=== PATIENT | female | born 1945 | race Caucasian/White ===

== ENCOUNTER 2019-02-06 18:05 | Emergency (ER) | payer MEDICARE, BC ==
[~2019-02-06] VITALS: Ht 187.9 cm; Wt 127.3 kg
[2019-02-06] MEDS ORDERED: LIDOCAINE/EPI 1%-1:100,000 (XYLOCAINE) 20ML INJ STA (18:14)
[2019-02-06] MEDS ORDERED: TETANUS,DIPTH,PERTUSS P/F (BOOSTRIX) 0.5 ML VIAL IM ONE (18:15)
[2019-02-06] MEDS ORDERED: LIDOCAINE/EPI 2% 1:100,00 (XYLOCAINE) 20 ML VIAL ONE ×2 (18:17→18:19)
--- NOTE | 2019-02-06 18:19 | ED Fall/Injury ---
General Chief Complaint: Laceration Stated Complaint: LACERATION FOREHEAD Source: patient Exam Limitations: no limitations History of Present Illness Date Seen by Provider: Feb 06, 2019 Time Seen by Provider: 18:10 Initial Comments 73-year-old female presents following a fall. Patient suffered a laceration to her left forehead. She reports that she was hosting a alliance party she was outside and tripped over a curb and fell and hit her head on the concrete. She did not lose consciousness. She does have some mild bleeding. She does not have any vision changes, nausea or vomiting. Patient is unsure when her last tetanus was. She denies any other injury Allergies and Home Medications Allergies Coded Allergies: No Known Drug Allergies (Unverified , 02/06/19) Patient Home Medication List Home Medication List Reviewed: Yes Review of Systems Review of Systems Constitutional: No chills, No fever Eyes: No Symptoms Reported Ears, Nose, Mouth, Throat: no symptoms reported Respiratory: No cough, No short of breath Cardiovascular: No chest pain, No palpitations Gastrointestinal: no symptoms reported Musculoskeletal: no symptoms reported Skin: see HPI Past Wdrpieo-Csfkga-Mazgzb Hx Past Med/Social Hx: Reviewed Nursing Past Med/Soc Hx Patient Social History Recent Foreign Travel: No Contact w/Someone Who Travel: No Physical Exam Vital Signs Vital Signs - First Documented 02/06/19 18:05 Temp 36.5 Pulse 90 Resp 16 B/P (MAP) 179/76 (110) Pulse Ox 97 O2 Delivery Room Air Capillary Refill : Height, Weight, BMI Height: '" Weight: lbs. oz. kg; BMI Method: General Appearance: no apparent distress HEENT: PERRL/EOMI, TMs normal Neck: full range of motion, supple Cardiovascular: normal peripheral pulses, regular rate, rhythm Respiratory: chest non-tender, lungs clear, normal breath sounds Gastrointestinal: non tender, soft Back: no CVA tenderness Extremities: normal range of motion, non-tender Skin: other (irregular laceration to her left forehead approximately 5 cm) Yanci Coma Score Best Eye Response: (4) Open Spontaneously Best Verbal Response: (5) Oriented Best Motor Response: (6) Obeys Commands Procedures/Interventions Wound Location: Other (left forehead above the left eye) Wound's Depth, Shape: superficial, irregular, contused tissue Wound Explored: clean Betadine Prep?: Yes Anesthesia: Lidocaine w/ Epi Volume Anesthetic (ccs): 5 Suture: Plain Suture Size: 4-0 Number of Sutures: 4 Sterile Dressing Applied?: Yes Progress Patient tolerated well with no immediate complications Progress/Results/Core Measures Results/Orders My Orders Orders - BEST ANNA L DO Dipht,Pertuss(Acell),Tet Adult (Boostrix (02/06/19 18:15) Lidocaine/Epi 1% 1:100,000 (Xylocaine /E (02/06/19 18:14) Ct Head Wo (02/06/19 18:14) Lidocaine/Epi 2% 1:100,000 (Xylocaine/Ep (02/06/19 18:17) Lidocaine/Epi 2% 1:100,000 (Xylocaine/Ep (02/06/19 18:30) Lidocaine/Epi 2% 1:100,000 (Xylocaine/Ep (02/06/19 18:19) Vital Signs/I&O 02/06/19 18:05 Temp 36.5 Pulse 90 Resp 16 B/P (MAP) 179/76 (110) Pulse Ox 97 O2 Delivery Room Air Progress Progress Note : Time: 19:05 Progress Note Patient was offered CT maxillofacial to evaluate for fracture. Her swelling and tenderness was over the zygomatic bone. She felt that since he probably wouldn't do anything for it anyway there was no reason to get a CT at this time. She will follow-up with her primary care provider if symptoms worsens return to the ER as needed Diagnostic Imaging Diagonstic Imaging: CT Plain Films/CT/US/NM/MRI: head Departure Impression Primary Impression: Fall from other slipping, tripping, or stumbling Additional Impressions: Laceration of forehead without complication Qualified Codes: S01.81XA - Laceration without foreign body of other part of head, initial encounter Contusion of forehead Qualified Codes: S00.83XA - Contusion of other part of head, initial encounter Disposition: 01 HOME, SELF-CARE Condition: Stable Departure-Patient Inst. Patient Instructions: Laceration Repair, Minor Head Injury (DC), Wound Care, Contusion (DC) Add. Discharge Instructions: Tylenol or ibuprofen as needed The Emergency Department focuses on treating and ruling out life-threatening diseases. Whenever possible, a diagnosis is given. However most patient's are given an impression based on the history, physical exam, and workup during their brief time in the ER. Information about probable diagnosis and other educational material has been provided. Please take the time to read and understand this information. It is very important that he follow up with a doctor as discussed during her visit today. Failure to adhere to your follow-up instructions may result in severe disability, injury or so please make sure to keep your appointments. Please keep in mind the emergency department is not designed to be your primary care or "family doctor" and not urgent issues are best evaluated by an outpatient physician All discharge instructions reviewed with patient and/or family. Voiced understanding. BEST ANNA DO Feb 06, 2019 18:19 POS
[2019-02-06] MEDS ORDERED: LIDOCAINE/EPI 2% 1:100,00 (XYLOCAINE) 20 ML VIAL INJ ONE (18:30)
--- NOTE | 2019-02-06 18:40 | Diagnostic Imaging Report ---
PROCEDURE: CT head without contrast. TECHNIQUE: Multiple contiguous axial images were obtained through the brain without the use of intravenous contrast. Auto Exposure Controls were utilized during the CT exam to meet ALARA standards for radiation dose reduction. INDICATION: Fall and hit head. COMPARISON: None available. FINDINGS: No hyperdense hemorrhage or space-occupying mass. No hydrocephalus or midline shift. Nettles-white matter differentiation is well-preserved. No skull fracture. Paranasal sinuses and mastoid air cells are clear. IMPRESSION: No acute intracranial process by CT. Dictated by: Dictated on workstation # [id number]
[2019-02-06 19:30] VITALS: BP 179/76
--- OUTSIDE RECORDS SUMMARY | 2019-03-04 16:46 | XMS REPORT | Continuity of Care Document ---
Author Organization Unknown Address Unknown Phone Unavailable Allergies Active Description Code Type Severity Reaction Onset Reported/Identified Relationship to Patient Clinical Status Yes No Known Drug Allergies [id number] Drug Allergy Unknown N/A 02/06/2019 Medications There is no data. Problems Date Dx Coded Attending Type Code Diagnosis Diagnosed By 02/11/2019 ANNA DO, BEST L Ot R40.2142 COMA SCALE, EYES OPEN, SPONTANEOUS, EMR 02/11/2019 ANNA DO, BEST L Ot R40.2252 COMA SCALE, BEST VERBAL RESPONSE, ORIENT 02/11/2019 ANNA DO, BEST L Ot R40.2362 COMA SCALE, BEST MOTOR RESPONSE, OBEYS C 02/11/2019 ANNA DO, BEST L Ot S01.81XA LACERATION W/O FOREIGN BODY OF OTH PART 02/11/2019 ANNA DO, BEST L Ot W01.198A FALL SAME LEV FROM SLIP/TRIP W STRIKE AG Procedures There is no data. Results There is no data. Encounters ACCT No. Visit Date/Time Discharge Status Pt. Type Provider Facility Loc./Unit Complaint [id number] 10/19/2018 14:00:00 10/19/2018 23:59: 59 CLS Outpatient RUBEN [facility] [id number] 02/06/2019 18:08:00 019 19:32:00 DIS Outpatient WILFRIDO DO BEST L [facility] ER FS LACERATION FOREHEAD
== END 2019-02-06 19:32 | disposition home or self-care (01) ==
LOC: ER FS 18:08
DX: S01.81XA Laceration without foreign body of other part of head, initial encounter (principal); R40.2142 Coma scale, eyes open, spontaneous, at arrival to emergency department; R40.2252 Coma scale, best verbal response, oriented, at arrival to emergency department; R40.2362 Coma scale, best motor response, obeys commands, at arrival to emergency department; W01.198A Fall on same level from slipping, tripping and stumbling with subsequent striking against other object, initial encounter
CPT/HCPCS: 70450; 90471; 90715

== ENCOUNTER 2021-12-05 13:04 | Inpatient (IN) | payer MEDICARE, BC ==
[2021-12-05] VITALS (9 sets, daily range): BP systolic 97–163; BP diastolic 33–70
[~2021-12-05] VITALS: Ht 190.5 cm; Wt 127.7 kg
[2021-12-05 13:22] LABS: BASOPHILS % (AUTO) 0 % (0-10); EOSINOPHILS # (AUTO) 0.2 10^3/uL (0.0-0.3); EOSINOPHILS % (AUTO) 1 % (0-10); HEMATOCRIT 38 % (35-52); HEMOGLOBIN 12.6 g/dL (11.5-16.0); LYMPHOCYTES # (AUTO) 1.8 10^3/uL (1.0-4.0); LYMPHOCYTES % (AUTO) 13 % (12-44); MEAN CORPUSCULAR HEMOGLOBIN 29 pg (25-34); MEAN CORPUSCULAR HGB CONC 33 g/dL (32-36); MEAN CORPUSCULAR VOLUME 87 fL (80-99); MEAN PLATELET VOLUME 9.7 fL (9.0-12.2); MONOCYTES % (AUTO) 7 % (0-12); NEUTROPHILS # (AUTO) 10.9 10^3/uL (1.8-7.8); NEUTROPHILS % (AUTO) 78 % (42-75); PLATELET COUNT 232 10^3/uL (130-400)
[2021-12-05 13:38] LABS: EOSINOPHILS % (MANUAL) 1 %; LYMPHOCYTES % (MANUAL) 15 %; MONOCYTES % (MANUAL) 4 %; NEUTROPHILS % (MANUAL) 80 %
[2021-12-05] MEDS ORDERED: morphine INJ 10 MG/ML 1ML (SYR OR VIAL) IVP STA (13:40)
[2021-12-05] MEDS ORDERED: ONDANSETRON 4 MG/2 ML (SDV) Z0FRAN IVP ONE (13:45)
[2021-12-05 13:49] LABS: CREATININE SERUM 0.73 MG/DL (0.60-1.30); POTASSIUM 4.2 MMOL/L (3.6-5.0)
[2021-12-05 13:50] LABS: ALBUMIN 4.3 GM/DL (3.2-4.5); BILIRUBIN,TOTAL 0.7 MG/DL (0.1-1.0); CALCIUM 10.3 MG/DL (8.5-10.1); TOTAL PROTEIN 7.3 GM/DL (6.4-8.2)
[2021-12-05] MEDS ORDERED: HOLD METFORMIN - RECEIVED CONTRAST 20 ML VIAL IV SCH (14:00)
[2021-12-05] MEDS ORDERED: IOHEXOL 350 MG/ML 100 ML (OMNIPAQUE 350) VIAL IV ONE (14:00)
[2021-12-05] MEDS ORDERED: CATHETER FLUSH 10 ML SYR IV PRN (14:00)
[2021-12-05] MEDS ORDERED: NS 100 ML (IVPB) BAG IV ONE (14:00)
[2021-12-05] MEDS ORDERED: PIPERACILLIN SODIUM/TAZOBACTAM 4.5 GM in NS (IVPB) 100 ML IV ONE (14:30)
--- NOTE | 2021-12-05 14:31 | Diagnostic Imaging Report ---
PROCEDURE: CT abdomen and pelvis with contrast. TECHNIQUE: Multiple contiguous axial images were obtained through the abdomen and pelvis after administration of intravenous contrast. Auto Exposure Controls were utilized during the CT exam to meet ALARA standards for radiation dose reduction. All CT scans use one or more of the following dose optimizing techniques: automated exposure control, MA and/or KvP adjustment based on patient size and exam type or iterative reconstruction. INDICATION: Left lower quadrant pain. Constipation. COMPARISON: No comparison available FINDINGS: The lung bases demonstrate a fat-containing right diaphragmatic hernia. There is no pneumonia or edema. There is no effusion or pericardial collection. The liver demonstrates no evidence of an acute process. There is some incidental focal fatty infiltration along the falciform ligament. Portal and hepatic veins are patent. The gallbladder is nondistended. There is no biliary dilatation or radiodense stone. The pancreas is unremarkable. The spleen is normal in size. There is no adrenal mass. The kidneys demonstrate multiple parapelvic cysts on the left but no findings of stone or hydronephrosis. There is a small hiatal hernia. The stomach is nondistended. There is no abnormal small or large bowel dilation. There is marked inflammatory fat stranding present within the right lower quadrant with multiple stones that appear to be within a dilated appendix. The appendix measures up to 1.4 cm with marked adjacent inflammatory fat stranding compatible with an appendicitis. There is also some adjacent free fluid and this may reflect a ruptured appendicitis. The colon is decompressed. There is diverticulosis but no evidence of diverticulitis. There is no definable abscess. There is no free air. The bladder, uterus and adnexa unremarkable. The inflammatory changes on the right are in close proximity to the right ovary. There are no pathologically enlarged lymph nodes. The aorta is normal in caliber. There is no acute or suspicious osseous abnormality. There are multilevel endplate changes and vacuum discs throughout the spine. IMPRESSION: 1. Findings compatible with an acute appendicitis which is likely a ruptured appendicitis given the degree of adjacent fat stranding and adjacent fluid. There are large appendicoliths demonstrated within the dilated appendix that measures up to 1.4 cm in diameter. 2. There are no findings of abscess or free fluid within the pelvis. 3. There is no bowel obstruction. Note is made of uncomplicated diverticulosis. 4. Fat-containing right diaphragmatic hernia and small hiatal hernia. 5. Advanced degenerative features throughout the spine. Dictated by: Dictated on workstation # [id number]
--- NOTE | 2021-12-05 14:51 | ED Abdominal Pain ---
General Chief Complaint: Abdominal/GI Problems Stated Complaint: ABD PAIN Nursing Triage Note: Patient reports she began having right abdominal pain last night. Patient denies any nasuea, vomiting, or fever. She reports her last BM was . She states she has a history of diverticulosis. Source of Information: Patient Exam Limitations: No Limitations History of Present Illness Date Seen by Provider: Dec 05, 2021 Time Seen by Provider: 13:00 Initial Comments Patient is a 76-year-old female who presents with right lower quadrant pain for the past 18 hours. Pain is moderate to severe worse with palpation and movement. No fever chills or sweats. Patient has not had a bowel movement in 3 days. History of diverticulosis. No other acute symptoms or complaints. Timing/Duration: 12-24 Hours Severity/Quality: Moderate Location: RLQ Radiation: Other Activities at Onset: Other Modifying Factors: Improves With Other Allergies and Home Medications Allergies Coded Allergies: No Known Drug Allergies (Unverified , 02/06/19) Patient Home Medication List Home Medication List Reviewed: Yes Review of Systems Review of Systems Constitutional: see HPI EENTM: See HPI Respiratory: See HPI Gastrointestinal: See HPI Genitourinary: See HPI Musculoskeletal: see HPI Skin: see HPI Psychiatric/Neurological: See HPI Endocrine: See HPI Hematologic/Lymphatic: See HPI All Other Systems Reviewed Negative Unless Noted: No Past Zvcpeeu-Rqeoqx-Osmpad Hx Patient Social History Tobacco Use?: No Substance use?: No Alcohol Use?: Yes Alcohol Frequency: Daily Pt feels they are or have been: No Immunizations Up To Date Tetanus Booster (TDap): Unknown Past Medical History Surgery/Hospitalization HX: diverticulosis, HTN, high cholesterol, gout, hypothyroidism Physical Exam Vital Signs Vital Signs - First Documented 12/05/21 13:18 Temp 36.3 Pulse 86 Resp 16 B/P (MAP) 172/81 (111) Pulse Ox 98 O2 Delivery Room Air Capillary Refill : Less Than 3 Seconds Height/Weight/BMI Height: '" Weight: lbs. oz. kg; 34.00 BMI Method: General Appearance: WD/WN, mild distress (seconday to pain) Respiratory: lungs clear Cardiovascular: normal peripheral pulses Gastrointestinal: soft, tenderness (RLQ pain/ttp) Extremities: normal range of motion, non-tender Back: normal inspection, no CVA tenderness Focused Exam Sepsis Stage: Ruled Out Procedures/Interventions Suture Size: 4-0 Progress/Results/Core Measures Results/Orders Lab Results Laboratory Tests Test 12/05/21 13:20 Range/Units White Blood Count 14.0 H 4.3-11.0 10^3/uL Red Blood Count 4.40 3.80-5.11 10^6/uL Hemoglobin 12.6 11.5-16.0 g/dL Hematocrit 38 35-52 % Mean Corpuscular Volume 87 80-99 fL Mean Corpuscular Hemoglobin 29 25-34 pg Mean Corpuscular Hemoglobin Concent 33 32-36 g/dL Red Cell Distribution Width 15.6 H 10.0-14.5 % Platelet Count 232 130-400 10^3/uL Mean Platelet Volume 9.7 9.0-12.2 fL Immature Granulocyte % (Auto) 0 % Neutrophils (%) (Auto) 78 H 42-75 % Lymphocytes (%) (Auto) 13 12-44 % Monocytes (%) (Auto) 7 0-12 % Eosinophils (%) (Auto) 1 0-10 % Basophils (%) (Auto) 0 0-10 % Neutrophils # (Auto) 10.9 H 1.8-7.8 10^3/uL Lymphocytes # (Auto) 1.8 1.0-4.0 10^3/uL Monocytes # (Auto) 1.0 0.0-1.0 10^3/uL Eosinophils # (Auto) 0.2 0.0-0.3 10^3/uL Basophils # (Auto) 0.0 0.0-0.1 10^3/uL Immature Granulocyte # (Auto) 0.1 0.0-0.1 10^3/uL Neutrophils % (Manual) 80 % Lymphocytes % (Manual) 15 % Monocytes % (Manual) 4 % Eosinophils % (Manual) 1 % Sodium Level 140 135-145 MMOL/L Potassium Level 4.2 3.6-5.0 MMOL/L Chloride Level 106 98-107 MMOL/L Carbon Dioxide Level 20 L 21-32 MMOL/L Anion Gap 14 5-14 MMOL/L Blood Urea Nitrogen 26 H 7-18 MG/DL Creatinine 0.73 0.60-1.30 MG/DL Estimat Glomerular Filtration Rate 86 BUN/Creatinine Ratio 36 Glucose Level 123 H 70-105 MG/DL Calcium Level 10.3 H 8.5-10.1 MG/DL Corrected Calcium 10.1 8.5-10.1 MG/DL Total Bilirubin 0.7 0.1-1.0 MG/DL Aspartate Amino Transf (AST/SGOT) 36 H 5-34 U/L Alanine Aminotransferase (ALT/SGPT) 78 H 0-55 U/L Alkaline Phosphatase 95 40-136 U/L Total Protein 7.3 6.4-8.2 GM/DL Albumin 4.3 3.2-4.5 GM/DL My Orders Orders - GREGORIA BLOUNT DO Cbc With Automated Diff (12/05/21 13:11) Comprehensive Metabolic Panel (12/05/21 13:11) Ekg Tracing (12/05/21 13:11) Urinalysis (12/05/21 13:14) Ct Abdomen/Pelvis W (12/05/21 13:14) Manual Differential (12/05/21 13:20) Morphine Injection (Morphine Injection (12/05/21 13:40) Ondansetron Injection (Zofran Injectio (12/05/21 13:45) Piperacillin Sodium/Tazobactam (Zosyn Vi (12/05/21 14:30) Medications Given in ED Current Medications Medications Dose Ordered Sig/Moustapha Route Start Time Stop Time Status Last Admin Dose Admin Iohexol 100 ml ONCE ONCE IV 12/05/21 14:00 12/05/21 14:03 DC 12/05/21 14:10 100 ML Ondansetron HCl 4 mg ONCE ONCE IVP 12/05/21 13:45 12/05/21 13:46 DC 12/05/21 13:57 4 MG Sodium Chloride 10 ml NEEDED PRN IV 12/05/21 14:00 12/05/21 14:10 10 ML Sodium Chloride 100 ml ONCE ONCE IV 12/05/21 14:00 12/05/21 14:03 DC 12/05/21 14:10 100 ML Vital Signs/I&O 12/05/21 13:18 Temp 36.3 Pulse 86 Resp 16 B/P (MAP) 172/81 (111) Pulse Ox 98 O2 Delivery Room Air Blood Pressure Mean: 111 Departure Communication (Admissions) CT abd/pelvis: perforareted appy First dose of abx given. Dr. Serna accepts directly to general sx service. Impression Primary Impression: Acute appendicitis Disposition: ADMITTED INPATIENT Condition: Stable Admissions Decision to Admit Reason: Admit from ER (Trauma) Decision to Admit/Date: Dec 05, 2021 Time/Decision to Admit Time: 14:00 Transfer Method of Transfer: Private Vehicle Departure-Patient Inst. Referrals: POLO PEPPER MD (PCP) Primary Care Physician GREGORIA BLOUNT DO Dec 05, 2021 14:51
[2021-12-05] MEDS ORDERED: ONDANSETRON 4 MG/2 ML (SDV) Z0FRAN IV PRN (16:15)
[2021-12-05] MEDS: D5 NS 1000 ML IV SOLUTION 1,000 ML IV SCH (16:45)
[2021-12-05] MEDS: morphine INJ 4 MG/ML 1 ML (VIAL/SYRINGE) IV PRN ×2 (16:45→22:54)
[2021-12-05] MEDS ORDERED: FLU QUAD HIGH DOSE 240 MCG/0.7 ML 2022-23 (FLUZONE) IM ONE (17:00)
[2021-12-05] MEDS ORDERED: NS (IVPB) 100 ML ONE (17:11)
[2021-12-05] MEDS ORDERED: PIPERACILLIN/TAZO 4.5 GM VIAL (ZOSYN) IV ONE (17:11)
[2021-12-05] MEDS ORDERED: LEVO150T6 PO (18:09)
[2021-12-05] MEDS ORDERED: CELE-63 PO (18:09)
[2021-12-05] MEDS ORDERED: ATOR40TA70 PO (18:09)
[2021-12-05] MEDS ORDERED: ALLO100T PO (18:09)
[2021-12-05] MEDS ORDERED: LIDOCAINE/EPI 2% 1:200,00 (XYLOCAINE) 10 ML VIAL ONE (19:08)
[2021-12-05] MEDS ORDERED: ONDANSETRON 4 MG/2 ML (SDV) Z0FRAN IVP PRN (19:15)
[2021-12-05] MEDS ORDERED: fentaNYL INJ 100 MCG/2 ML AMP IVP ONE (19:15)
[2021-12-05] MEDS ORDERED: MEPERIDINE (DEMEROL) INJ 50 MG/ML IVP ONE (19:15)
[2021-12-05] MEDS ORDERED: morphine INJ 10 MG/ML 1ML (SYR OR VIAL) IVP ONE (19:15)
[2021-12-05] MEDS ORDERED: proPOfol 200 MG/20 ML (DIPRIVAN) VIAL IV ONE ×2 (19:18→20:40)
[2021-12-05] MEDS ORDERED: ROCURONIUM 10 MG/ML 5 ML SYRINGE IV ONE (19:18)
[2021-12-05] MEDS ORDERED: LIDOCAINE PF 2% 5 ML (XYLOCAINE) VIAL ONE (19:18)
[2021-12-05] MEDS ORDERED: SEVOFLURANE (ULTANE) 15 ML INHAL SOLN ONE ×2 (19:18→20:19)
[2021-12-05] MEDS ORDERED: MIDAZOLAM 2 MG/2 ML (VERSED) VIAL ONE (19:19)
[2021-12-05] MEDS: LACTATED RINGERS 1,000 ML IV PRN ×2 (19:42→20:25)
--- NOTE | 2021-12-05 19:44 | Consultation - Surgery ---
History of Present Illness History of Present Illness Patient Consulted On(angela/time) 12/05/21 19:39 Time Seen by Provider: 19:23 History of Present Illness Surgery asked to consult regarding RLQ pain and appendicitis. HPI per ED: Patient reports she began having right abdominal pain last night. Patient denies any nasuea, vomiting, or fever. She reports her last BM was . She states she has a history of diverticulosis. Patient is a 76-year-old female who presents with right lower quadrant pain for the past 18 hours. Pain is moderate to severe worse with palpation and movement. No fever chills or sweats. Patient has not had a bowel movement in 3 days. History of diverticulosis. No other acute symptoms or complaints. When I spoke to pt this evening she was still having pain. She stated she last had coffee this am at around 8 but it didn't taste good and hasn't eaten anything since. She thought this pain was from her diverticula. Allergies and Home Medications Allergies Coded Allergies: No Known Drug Allergies (Unverified , 02/06/19) Patient Home Medication List Home Medication List Reviewed: Yes Allopurinol (Allopurinol) 100 Mg Tablet, 100 MG PO DAILY, (Reported) Entered as Reported by: JASVIR SEE on 12/05/211808 Last Action: New Order Atorvastatin Calcium (Atorvastatin Calcium) 40 Mg Tablet, 40 MG PO DAILY, (Reported) Entered as Reported by: JASVIR SEE on 12/05/211808 Last Action: New Order Celecoxib (Celecoxib) 200 Mg Capsule, 200 MG PO BID, (Reported) Entered as Reported by: JASVIR SEE on 12/05/211808 Last Action: New Order Levothyroxine Sodium (Levothyroxine Sodium) 150 Mcg Tablet, 150 MCG PO DAILY, (Reported) Entered as Reported by: JASVIR SEE on 12/05/211808 Last Action: New Order Past Fkteeme-Hxarxq-Frknkr Hx Patient Social History Smoking Status: Former Smoker (smoked 1/2ppd for about 10 yrs) Cigarettes Per Day: 10 Alcohol Use?: Yes Have you traveled recently?: No Immunizations Up To Date Tetanus Booster (TDap): Unknown Date of Influenza Vaccine: Feb 03, 2019 Surgeries History of Surgeries: Yes (colonoscopies) Respiratory History of Respiratory Disorde: No Cardiovascular History of Cardiac Disorders: Yes Cardiac Disorders: High Cholesterol Neurological History of Neurological Disord: No Genitourinary History of Genitourinary Disor: No Gastrointestinal History of Gastrointestinal Di: Yes Gastrointestinal Disorders: Diverticulosis Musculoskeletal History of Musculoskeletal Dis: Yes Musculoskeletal Disorders: Arthritis, Gout Endocrine History of Endocrine Disorders: Yes Endocrine Disorders: Hypothyroidsim HEENT History of HEENT Disorders: No Loss of Vision: Denies Hearing Impairment: Denies Cancer History of Cancer: No Psychosocial History of Psychiatric Problem: No Family Medical History Significant Family History: Cancer (Father - lung) Review of Systems-General Constitutional: malaise, weakness EENTM: No blurred vision, No mouth swelling, No epistaxis Respiratory: No cough, No dyspnea on exertion Cardiovascular: No chest pain, No Hx of Intervention, No palpitations Gastrointestinal: No jaundice; loss of appetite, nausea; No vomiting Genitourinary: No dysuria, No frequency, No hematuria Musculoskeletal: gout, joint pain, joint swelling, muscle stiffness Skin: No change in color, No change in hair/nails Psychiatric/Neurological: Denies Anxiety, Denies Depressed, Denies Seizure, Denies Tremors Physical Exam-General Problems Physical Exam Vital Signs Vital Signs - First Documented 12/05/21 13:18 Temp 36.3 Pulse 86 Resp 16 B/P (MAP) 172/81 (111) Pulse Ox 98 O2 Delivery Room Air Capillary Refill : Less Than 3 Seconds General Appearance: mild distress, obese Eyes: Bilateral Eye PERRL, Bilateral Eye EOMI HEENT: pharynx normal; No scleral icterus (R), No scleral icterus (L) Neck: non-tender, supple Respiratory: lungs clear, normal breath sounds, no respiratory distress, no accessory muscle use Cardiovascular: no murmur, tachycardia Gastrointestinal: soft, no organomegaly, tenderness (around umbilicus and radiating to RLQ), hernia (small umbilical) Back: no CVA tenderness, no vertebral tenderness Extremities: no pedal edema, no calf tenderness, normal capillary refill 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, alert, oriented x 3 Skin: normal color, warm/dry Lymphatic: no adenopathy (neck, axilla or groin) Data Review Labs Laboratory Tests 12/05/21 13:20: White Blood Count 14.0H, Red Blood Count 4.40, Hemoglobin 12.6, Hematocrit 38, Mean Corpuscular Volume 87, Mean Corpuscular Hemoglobin 29, Mean Corpuscular Hemoglobin Concent 33, Red Cell Distribution Width 15.6H, Platelet Count 232, Mean Platelet Volume 9.7, Immature Granulocyte % (Auto) 0, Neutrophils (%) (Auto) 78H, Lymphocytes (%) (Auto) 13, Monocytes (%) (Auto) 7, Eosinophils (%) (Auto) 1, Basophils (%) (Auto) 0, Neutrophils # (Auto) 10.9H, Lymphocytes # (Auto) 1.8, Monocytes # (Auto) 1.0, Eosinophils # (Auto) 0.2, Basophils # (Auto) 0.0, Immature Granulocyte # (Auto) 0.1, Neutrophils % (Manual) 80, Lymphocytes % (Manual) 15, Monocytes % (Manual) 4, Eosinophils % (Manual) 1, Sodium Level 140, Potassium Level 4.2, Chloride Level 106, Carbon Dioxide Level 20L, Anion Gap 14, Blood Urea Nitrogen 26H, Creatinine 0.73, Estimat Glomerular Filtration Rate 86, BUN/Creatinine Ratio 36, Glucose Level 123H, Calcium Level 10.3H, Corrected Calcium 10.1, Total Bilirubin 0.7, Aspartate Amino Transf (AST/SGOT) 36H, Alanine Aminotransferase (ALT/SGPT) 78H, Alkaline Phosphatase 95, Total Protein 7.3, Albumin 4.3 Radiology Date of Exam:12/05/21 CT ABDOMEN/PELVIS W PROCEDURE: CT abdomen and pelvis with contrast. TECHNIQUE: Multiple contiguous axial images were obtained through the abdomen and pelvis after administration of intravenous contrast. Auto Exposure Controls were utilized during the CT exam to meet ALARA standards for radiation dose reduction. All CT scans use one or more of the following dose optimizing techniques: automated exposure control, MA and/or KvP adjustment based on patient size and exam type or iterative reconstruction. INDICATION: Left lower quadrant pain. Constipation. COMPARISON: No comparison available FINDINGS: The lung bases demonstrate a fat-containing right diaphragmatic hernia. There is no pneumonia or edema. There is no effusion or pericardial collection. The liver demonstrates no evidence of an acute process. There is some incidental focal fatty infiltration along the falciform ligament. Portal and hepatic veins are patent. The gallbladder is nondistended. There is no biliary dilatation or radiodense stone. The pancreas is unremarkable. The spleen is normal in size. There is no adrenal mass. The kidneys demonstrate multiple parapelvic cysts on the left but no findings of stone or hydronephrosis. There is a small hiatal hernia. The stomach is nondistended. There is no abnormal small or large bowel dilation. There is marked inflammatory fat stranding present within the right lower quadrant with multiple stones that appear to be within a dilated appendix. The appendix measures up to 1.4 cm with marked adjacent inflammatory fat stranding compatible with an appendicitis. There is also some adjacent free fluid and this may reflect a ruptured appendicitis. The colon is decompressed. There is diverticulosis but no evidence of diverticulitis. There is no definable abscess. There is no free air. The bladder, uterus and adnexa unremarkable. The inflammatory changes on the right are in close proximity to the right ovary. There are no pathologically enlarged lymph nodes. The aorta is normal in caliber. There is no acute or suspicious osseous abnormality. There are multilevel endplate changes and vacuum discs throughout the spine. IMPRESSION: 1. Findings compatible with an acute appendicitis which is likely a ruptured appendicitis given the degree of adjacent fat stranding and adjacent fluid. There are large appendicoliths demonstrated within the dilated appendix that measures up to 1.4 cm in diameter. 2. There are no findings of abscess or free fluid within the pelvis. 3. There is no bowel obstruction. Note is made of uncomplicated diverticulosis. 4. Fat-containing right diaphragmatic hernia and small hiatal hernia. 5. Advanced degenerative features throughout the spine. Dictated by: Dictated on workstation # [id number] Dict: 12/05/21 1416 Trans: 12/05/21 1438 [facility] [id number] Interpreted by: RADHA JENSEN MD Electronically signed by: RADHA JENSEN MD 12/05/21 1438 Assessment/Plan Assessment/Plan Assessment/Plan Acute appendicitis with Appendicolith I reviewed the CT myself and discussed this case with ED physician. I see inflammation around the appendix, appendicolith and it is dilated. She has elevated WBC and I believe this is an acute appendicitis. She was sent down from [place], admitted with IV fluids, pain control, anti-emetics as needed and kept NPO. I talked with pt and her two sons about the findings and plan for Laparoscopic appendectomy possible open. We went over risks and complications not limited to pain, bleeding, infection, scar, damage to bowel and need for further procedure. All questions answered to their satisfaction. HOMA SHEA DO Dec 05, 2021 19:44
[2021-12-05] MEDS ORDERED: SUCCINYLCHOLINE INJ 100 MG/5 ML SYR/VIAL ONE (20:19)
[2021-12-05] MEDS ORDERED: LACTATED RINGERS 1,000 ML IV PRN (20:30)
[2021-12-05] MEDS ORDERED: PIPERACILLIN SODIUM/TAZOBACTAM 4.5 GM in NS (IVPB) 100 ML IV SCH (21:00)
--- NOTE | 2021-12-05 21:29 | Progress Note-Post Operative ---
Post-Operative Progess Note Surgeon (s)/Molding Fitter (s) Surgeon HOMA SHEA DO Molding Fitter: DARWIN Adams Pre-Operative Diagnosis Acute Appy Post-Operative Diagnosis Perforated appendicitis Procedure & Operative Findings Date of Procedure 12/05/21 Procedure Performed/Findings PROCEDURE: Laparoscopic appendectomy. COMPLICATIONS: None. INDICATIONS: The patient is a 76 year old female who has been having right lower quadrant abdominal pain. Patient's exam consistent with appendicitis. I discussed risk and benefits of laparoscopic appendectomy and all indicated procedures with the possibility being a normal appendix. The patient understands the risks and benefits and wishes to proceed. Consent was signed on the chart. DESCRIPTION OF PROCEDURE: The patient was taken to the operating suite, prepped and draped in a sterile fashion. Timeout was performed. Local anesthetic was infiltrated just above the umbilicus and 11- blade scalpel was used to make a skin incision. Cautery was used to dissect down to the fascia and scored. Kochers were used to grasp and elevate it and the abdomen was then entered. A 0 Vicryl was placed in a [id number] fashion for closure at the end of the case. The balloon trocar was inserted into the abdomen and pneumoperitoneum was achieved. Under direct visualization of the laparoscope, a 5 mm trocar was placed in the suprapubic region and a 5 mm trocar was placed in the left lower quadrant. Immediately upon entering noted purulent fluid in the abdomen. Appendix was located, under the cecum and terminal ileum. The cecum was stuck up on the wall, taken down with Ligasure. The base of the appendix was dissected around after first freeing up the small bowel surrounding it. Once at the base an Endo-ROSEMARY 2.5 stapler was then fired across the base of the appendix. The mesoappendix was then divided. It was then placed in an Endobag and removed through the 12 mm trocar site. The abdomen was then irrigated with 4 Liters of warm normal saline and suctioned. No other pathology noted. Elected to place a drain, through the 12mm port and then brought out through the supra- pubic port site. It was sutured in place with 3-0 silk. The abdomen was then desufflated and the trocars were removed. The 0 Vicryl placed at the beginning of the case was then tied closing the 12 mm fascial defect. The skin was then closed using 4-0 Monocryl in a subcuticular fashion. The abdomen was then washed and dried and Skin Affix was placed over the incisions. The patient tolerated the procedure well without any complications and was taken to the recovery room in stable condition. Anesthesia Type GET Estimated Blood Loss Estimated blood loss (mL): scant Specimens/Packing Specimens Removed appendix HOMA SHEA DO Dec 05, 2021 21:29
[2021-12-05] MEDS ORDERED: ACETAMINOPHEN 500 MG TAB (TYLENOL) PO PRN (22:45)
[2021-12-05] MEDS: PIPERACILLIN SODIUM/TAZOBACTAM 4.5 GM in NS (IVPB) 100 ML IV SCH (23:33)
[2021-12-06] VITALS (7 sets, daily range): BP systolic 95–108; BP diastolic 49–68
[2021-12-06] MEDS: morphine INJ 4 MG/ML 1 ML (VIAL/SYRINGE) IV PRN ×3 (03:42→22:15)
[2021-12-06 05:31] LABS: BASOPHILS % (AUTO) 0 % (0-10); EOSINOPHILS % (AUTO) 0 % (0-10); HEMATOCRIT 36 % (35-52); HEMOGLOBIN 11.5 g/dL (11.5-16.0); LYMPHOCYTES # (AUTO) 1.2 10^3/uL (1.0-4.0); LYMPHOCYTES % (AUTO) 11 % (12-44); MEAN CORPUSCULAR HEMOGLOBIN 29 pg (25-34); MEAN CORPUSCULAR HGB CONC 32 g/dL (32-36); MEAN CORPUSCULAR VOLUME 92 fL (80-99); MEAN PLATELET VOLUME 10.2 fL (9.0-12.2); MONOCYTES # (AUTO) 0.8 10^3/uL (0.0-1.0); MONOCYTES % (AUTO) 7 % (0-12); NEUTROPHILS # (AUTO) 9.1 10^3/uL (1.8-7.8); NEUTROPHILS % (AUTO) 82 % (42-75); PLATELET COUNT 223 10^3/uL (130-400); WHITE BLOOD COUNT 11.1 10^3/uL (4.3-11.0)
[2021-12-06 05:43] LABS: POTASSIUM 4.8 MMOL/L (3.6-5.0)
[2021-12-06 05:45] LABS: CALCIUM 9.1 MG/DL (8.5-10.1)
[2021-12-06 05:49] LABS: CREATININE SERUM 1.03 MG/DL (0.60-1.30)
[2021-12-06] MEDS: D5 NS 1000 ML IV SOLUTION 1,000 ML IV SCH ×3 (06:33→23:42)
[2021-12-06] MEDS: PIPERACILLIN SODIUM/TAZOBACTAM 4.5 GM in NS (IVPB) 100 ML IV SCH ×3 (06:38→23:46)
--- NOTE | 2021-12-06 07:27 | Progress Note - Surgery ---
DUNCAN LU 12/06/21 0727: Subjective Date Seen by a Provider: Dec 06, 2021 Time Seen by a Provider: 07:22 Subjective/Events-last exam Pt is lying in bed comfortably. She reports lower abdominal pain that is better than last night prior to surgery.Very tender to palpation of RLQ. It hurts her to stand up and walk, but she feels ok lying down. She denies fever or chills overnight. She has been able to ambulate to bathroom with help of nurses. She could not void this morning despite feeling the need to. She said it burned and hurt when she tried. She has not had a BM since hospital admission. She has not passed gas. Her abdominal drain is draining cloudy fluid that is yellow with red streaks. Her incisions are intact, clean, tender, with no redness or swelling. Review of Systems General: No Chills, No Night Sweats HEENT: No Head Aches, No Visual Changes Pulmonary: No Dyspnea, No Cough (pt had a cough last night, is afraid to cough today due to abdominal pain.) Cardiovascular: No: Chest Pain, Palpitations Gastrointestinal: Abdominal Pain (RLQ); No: Nausea, Vomiting Genitourinary: No Dysuria; Other (failed attempt to void this morning) Neurological: No: Change in speech, Confusion Objective Exam Vital Signs Date Time Temp Pulse Resp B/P (MAP) Pulse Ox O2 Delivery O2 Flow Rate FiO2 12/06/21 03:42 37.3 79 16 107/68 (81) 97 Nasal Cannula 2.00 12/06/21 01:10 85 99/55 (70) 12/06/21 00:00 37.1 84 18 97/53 (68) 97 Nasal Cannula 2.00 12/05/21 22:15 Nasal Cannula 2.00 12/05/21 22:15 37.2 83 20 105/33 (57) 93 Nasal Cannula 2.00 12/05/21 22:00 37.2 20 112/61 (78) 92 Room Air 12/05/21 22:00 Room Air 12/05/21 21:50 20 114/57 (76) 92 OxyMask 2.00 12/05/21 21:45 OxyMask 2.00 12/05/21 21:40 19 112/53 (72) 92 OxyMask 2.00 12/05/21 21:30 OxyMask 4.00 12/05/21 21:30 18 102/63 (76) 92 OxyMask 4.00 12/05/21 21:20 20 101/49 (66) 94 OxyMask 6.00 12/05/21 21:16 OxyMask 8.00 12/05/21 21:16 38.8 18 97/47 (64) 92 OxyMask 8.00 12/05/21 19:18 39.0 86 20 126/60 (82) 92 Room Air 12/05/21 19:15 Room Air 12/05/21 19:08 Room Air 12/05/21 16:23 96 Room Air 12/05/21 16:16 37.0 70 22 163/70 (101) 96 Room Air 12/05/21 15:10 79 16 166/82 95 Room Air 12/05/21 13:18 36.3 86 16 172/81 (111) 98 Room Air I & O 12/06/21 07:00 Intake Total 2900 ml Output Total 485 ml Balance 2415 ml Capillary Refill : Less Than 3 Seconds General Appearance: No Apparent Distress, WD/WN, Other HEENT: PERRL/EOMI, Moist Mucous Membranes; No Scleral Icterus (L), No Scleral Icterus (R) Neck: Non Tender, Supple Respiratory: Chest Non Tender, Lungs Clear, Normal Breath Sounds, No Accessory Muscle Use Cardiovascular: Regular Rate, Rhythm, No Murmur Peripheral Pulses: 2+ Radial Pulses (R), 2+ Radial Pulses (L) Gastrointestinal: soft, no organomegaly, tenderness (around umbilicus and radiating to RLQ), hernia (small umbilical) Extremity: Non Tender, No Calf Tenderness Neurologic/Psychiatric: Alert, Oriented x3, Normal Mood/Affect; No Facial Droop Skin: Normal Color, Warm/Dry, Other (incisions are clean, dry, and intact) Lymphatic: No Adenopathy (cervical) Results Lab Laboratory Tests 12/05/21 13:20: White Blood Count 14.0H, Red Blood Count 4.40, Hemoglobin 12.6, Hematocrit 38, Mean Corpuscular Volume 87, Mean Corpuscular Hemoglobin 29, Mean Corpuscular Hemoglobin Concent 33, Red Cell Distribution Width 15.6H, Platelet Count 232, Mean Platelet Volume 9.7, Immature Granulocyte % (Auto) 0, Neutrophils (%) (Auto) 78H, Lymphocytes (%) (Auto) 13, Monocytes (%) (Auto) 7, Eosinophils (%) (Auto) 1, Basophils (%) (Auto) 0, Neutrophils # (Auto) 10.9H, Lymphocytes # (Auto) 1.8, Monocytes # (Auto) 1.0, Eosinophils # (Auto) 0.2, Basophils # (Auto) 0.0, Immature Granulocyte # (Auto) 0.1, Neutrophils % (Manual) 80, Lymphocytes % (Manual) 15, Monocytes % (Manual) 4, Eosinophils % (Manual) 1, Sodium Level 140, Potassium Level 4.2, Chloride Level 106, Carbon Dioxide Level 20L, Anion Gap 14, Blood Urea Nitrogen 26H, Creatinine 0.73, Estimat Glomerular Filtration Rate 86, BUN/Creatinine Ratio 36, Glucose Level 123H, Calcium Level 10.3H, Corrected Calcium 10.1, Total Bilirubin 0.7, Aspartate Amino Transf (AST/SGOT) 36H, Alanine Aminotransferase (ALT/SGPT) 78H, Alkaline Phosphatase 95, Total Protein 7.3, Albumin 4.3 12/06/21 05:25: White Blood Count 11.1H, Red Blood Count 3.96, Hemoglobin 11.5, Hematocrit 36, Mean Corpuscular Volume 92, Mean Corpuscular Hemoglobin 29, Mean Corpuscular Hemoglobin Concent 32, Red Cell Distribution Width 15.7H, Platelet Count 223, Mean Platelet Volume 10.2, Immature Granulocyte % (Auto) 0, Neutrophils (%) (Auto) 82H, Lymphocytes (%) (Auto) 11L, Monocytes (%) (Auto) 7, Eosinophils (%) (Auto) 0, Basophils (%) (Auto) 0, Neutrophils # (Auto) 9.1H, Lymphocytes # (Auto) 1.2, Monocytes # (Auto) 0.8, Eosinophils # (Auto) 0.0, Basophils # (Auto) 0.0, Immature Granulocyte # (Auto) 0.0, Sodium Level 138, Potassium Level 4.8, Chloride Level 110H, Carbon Dioxide Level 17L, Anion Gap 11, Blood Urea Nitrogen 27H, Creatinine 1.03, Estimat Glomerular Filtration Rate 57, BUN/Creatinine Ratio 26, Glucose Level 140H, Calcium Level 9.1 Assessment/Plan Assessment/Plan Assessment/Plan Acute appendicitis with Appendicolith s/p appendectomy Leukocytosis- down to 11.1 was 14 yesterday Plan: Pt is experiencing RLQ pain that has improved since before surgery. WBC count is dropping, Draining cloudy yellow fluid with red streaks from abdominal drain. T olerating ice chips. Pt has not reported BM, passing of gas, or voiding since surgery. Monitor for BM and successful void. Can be discharged if her pain remains under control and she urinates. JOEROBERTOHOMA Renuka DO 12/06/21 1222: Subjective Time Seen by a Provider: 11:43 Subjective/Events-last exam Pt seen and examined, states she has moderate pain and does not think she can go home today. Tolerating clears. "It hurts whenever I move". She was able to urinate this morning. Review of Systems General: No Chills, No Night Sweats; Fatigue Pulmonary: No Dyspnea, No Cough (pt had a cough last night, is afraid to cough today due to abdominal pain.) Cardiovascular: No: Chest Pain, Palpitations Gastrointestinal: Abdominal Pain (RLQ); No: Nausea, Vomiting Genitourinary: No Dysuria Objective Exam General Appearance: Mild Distress (secondary to pain), Obese HEENT: Moist Mucous Membranes Respiratory: Lungs Clear, Normal Breath Sounds, No Accessory Muscle Use, No Respiratory Distress Cardiovascular: Regular Rate, Rhythm, No Murmur Gastrointestinal: soft, tenderness (around umbilicus and radiating to RLQ), other (incisions c/d/i and RONAL with serosanguinous fluid) Neurologic/Psychiatric: Alert, Oriented x3 Assessment/Plan Assessment/Plan Assessment/Plan S/P appendectomy Leukocytosis- down to 11.1 was 14 yesterday Will increase to soft diet, switch to oral pain meds. Pt encouraged to ambulate and use IS. Will keep her in hospital for one more day secondary to pain control. Pt has not reported BM, passing of gas, or voiding since surgery. Supervisory-Addendum Brief Verification & Attestation Participated in pt care: history, MDM, physical Personally performed: exam, history, MDM, supervision of care Care discussed with: Medical Student Procedures: n/a Verification and Attestation of Medical Student E/M Service A medical student performed and documented this service. I then reviewed and verified all information documented by the medical student and made modifications to such information, when appropriate. I personally performed a physical exam, medical decision making and then discussed any differences between the notes and made revisions as necessary to create one note. Homa Serna , 12/06/21 , 12:21 DUNCAN LU Dec 06, 2021 07:27 HOMA SERNA DO Dec 06, 2021 12:22
[2021-12-06] MEDS ORDERED: VIT1CAPS5 PO (08:19)
[2021-12-06] MEDS ORDERED: MV-M1TAB57 PO (08:20)
[2021-12-06] MEDS: HYDROcodone/APAP 5 MG/325 MG (LORTAB) TAB PO PRN ×3 (10:30→23:38)
--- NOTE | 2021-12-06 14:22 | Anesthesia-General Post-Op ---
General Patient Condition Mental Status/LOC: Same as Preop Cardiovascular: Satisfactory Nausea/Vomiting: Absent Respiratory: Satisfactory Pain: Controlled Complications: Absent Post Op Complications Complications None Follow Up Care/Instructions Patient Instructions None needed. Anesthesia/Patient Condition Patient Condition Patient is doing well, no complaints, stable vital signs, no apparent adverse anesthesia problems. No complications reported per nursing. D/C home per [facility] Criteria: Yes BRENT OTERO CRNA Dec 06, 2021 14:22
[2021-12-07] VITALS (7 sets, daily range): BP systolic 102–138; BP diastolic 56–74
--- NOTE | 2021-12-07 08:25 | Progress Note - Surgery ---
DUNCAN LU 12/07/21 0825: Subjective Date Seen by a Provider: Dec 07, 2021 Time Seen by a Provider: 07:30 Subjective/Events-last exam Pt is POD2 from appendectomy. Pt is lying in bed comfortably. She reports 2/10 pain at rest that is 7/10 when getting out of bed and ambulating. Pain is slightly worse with deep inspiration. She reports dark urine this AM with no redness or cloudiness. No dysuria. Pt has not had BM or flatus. She complains of a metal taste in her mouth, no evidence of blood. She ate a small portion of pork and potatoes last night but is not hungry. Reports using spirometer 4 times yesterday. Abdominal drain is draining cloudy yellow fluid with streaks of b lood, similar to yesterday's inspection. On lortab for pain, no complaints of N/V, CP or shortness of breath. Review of Systems General: No Chills, No Night Sweats HEENT: No Head Aches, No Visual Changes Pulmonary: No Dyspnea, No Cough Cardiovascular: No: Chest Pain, Palpitations Gastrointestinal: Abdominal Pain (RLQ pain, improving but 2/10); No: Nausea, Vomiting Genitourinary: No Dysuria; Other (Pt reports darkening of her urine to orange color) Neurological: No: Change in speech, Confusion Objective Exam Vital Signs Date Time Temp Pulse Resp B/P (MAP) Pulse Ox O2 Delivery O2 Flow Rate FiO2 12/07/21 07:59 Nasal Cannula 2.00 12/07/21 07:54 37.0 80 18 121/59 (79) 95 Room Air 12/07/21 04:00 37.0 75 20 102/64 (77) 96 Room Air 12/07/21 00:30 36.9 79 20 120/72 (88) 94 Room Air 12/06/21 19:41 37.1 75 19 108/55 (72) 97 Room Air 12/06/21 15:30 36.4 74 18 95/49 (64) 93 Nasal Cannula 2.00 12/06/21 11:33 37.2 75 18 98/51 (67) 94 Nasal Cannula 2.00 I & O 12/07/21 07:00 Intake Total 760 ml Output Total 945 ml Balance -185 ml Capillary Refill : Less Than 3 Seconds General Appearance: WD/WN, Mild Distress (secondary to pain), Obese HEENT: PERRL/EOMI, Moist Mucous Membranes; No Scleral Icterus (L), No Scleral Icterus (R) Neck: Non Tender, Supple Respiratory: Lungs Clear, Normal Breath Sounds, No Accessory Muscle Use Cardiovascular: Regular Rate, Rhythm, No Murmur Peripheral Pulses: 2+ Radial Pulses (R), 2+ Radial Pulses (L) Gastrointestinal: soft, tenderness (RLQ), other (incisions c/d/i and RONAL with serosanguinous fluid) Extremity: Non Tender, No Calf Tenderness, No Pedal Edema Neurologic/Psychiatric: Alert, Oriented x3; No Facial Droop Skin: Normal Color, Warm/Dry, Other (incisions are clean, dry, and intact) Lymphatic: No Adenopathy (cervical) Results Lab Microbiology 12/05/21 MRSA Screen - Final, Complete MRSA not isolated Assessment/Plan Assessment/Plan Assessment/Plan S/P appendectomy POD2 Leukocytosis- 11.4, was 11.1 yesterday and 14 the day prior Will increase to soft diet, switch to oral pain meds. Pt encouraged to ambulate and use IS. I told her it would be better to use it more than 4 times per day. Plan is to stay one more day to work with physical therapy on increasing activity level. No BM or flatus since surgery, Pt has voided. PRATEEK SERNA DO 12/07/21 1537: Subjective Time Seen by a Provider: 12:03 Subjective/Events-last exam Pt seen and examined, looks better today than yesterday. Still having moderate pain with movement. She is mostly concerned about moving at home; "I need someone to help me get up out of bed, I can't do it myself." Tolerating diet. Review of Systems General: No Chills, No Night Sweats Pulmonary: No Dyspnea, No Cough Cardiovascular: No: Chest Pain, Palpitations Gastrointestinal: Abdominal Pain (RLQ pain, improving but 2/10); No: Nausea, Vomiting Genitourinary: No Dysuria; Other (Pt reports darkening of her urine to orange color) Objective Exam General Appearance: WD/WN, Mild Distress (secondary to pain), Obese HEENT: Moist Mucous Membranes Respiratory: Lungs Clear, Normal Breath Sounds, No Accessory Muscle Use Cardiovascular: Regular Rate, Rhythm, No Murmur Gastrointestinal: soft, tenderness (RLQ), other (incisions c/d/i and RONAL with serosanguinous fluid) Assessment/Plan Assessment/Plan Assessment/Plan S/P appendectomy POD2 Leukocytosis- 11.4, was 11.1 yesterday and 14 the day prior Will increase to soft diet, switch to oral pain meds. Pt encouraged to ambulate and use IS. I told her it would be better to use it more than 4 times per day. Plan is to stay one more day to work with physical therapy on increasing activity level. No BM or flatus since surgery, Pt has voided. I will have PT see pt and get SW to work on toilet lift and walker, so she can move better at home. Will keep one more day to facilitate this. Supervisory-Addendum Brief Verification & Attestation Participated in pt care: history, MDM, physical Personally performed: exam, history, MDM, supervision of care Care discussed with: Medical Student Procedures: n/a Verification and Attestation of Medical Student E/M Service A medical student performed and documented this service. I then reviewed and verified all information documented by the medical student and made modifications to such information, when appropriate. I personally performed a physical exam, medical decision making and then discussed any differences between the notes and made revisions as necessary to create one note. Prateek Serna , 12/07/21 , 15:36 DUNCAN LU Dec 07, 2021 08:25 PRATEEK SERNA DO Dec 07, 2021 15:37
[2021-12-07] MEDS: PIPERACILLIN SODIUM/TAZOBACTAM 4.5 GM in NS (IVPB) 100 ML IV SCH (08:33)
[2021-12-07] MEDS: HYDROcodone/APAP 5 MG/325 MG (LORTAB) TAB PO PRN ×2 (08:36→17:34)
--- NOTE | 2021-12-07 13:15 | Physical Therapy Evaluation ---
PT Evaluation-General Medical Diagnosis Admission Date Dec 05, 2021 at 16:08 Medical Diagnosis: acute appendicitis Onset Date: Dec 05, 2021 Therapy Diagnosis Therapy Diagnosis: debility/weakness Precautions Precautions/Isolations: Fall Prevention, Standard Precautions Weight Bear Status Right Lower Extremity: Right Weight Bearing/Tolerated Left Lower Extremity: Left Weight Bearing/Tolerated Referral Physician: Daphne Reason for Referral: Evaluation/Treatment Medical History Pertinent Medical History: HTN History of Falls (past yr): No Prior Surgery (last 100 days): Yes Current History ER secondary to abdominal pain Reviewed History: Yes Social History Home: Single Level Current Living Status: Alone Prior Prior Level of Function SCALE: Activities may be completed with or without assistive devices. 5-Auwftyhweh-toufvyh completes the activity by him/herself with no assistance from a helper. 5-Set-up or Clean-up Assistance-helper sets up or cleans up; patient completes activity. [place] assists only prior to or following the activity. 4-Supervision or Touching Assistance-helper provides verbal cues and/or touching/steadying and/or contact guard assistance as patient completes activity. Assistance may be provided throughout the activity or intermittently. 3-Partial/Moderate Assistance-helper does LESS THAN HALF the effort. [place] lifts, holds or supports trunk or limbs, but provides less than half the effort. 2-Substantial/Maximal Assistance-helper does MORE THAN HALF the effort. [place] lifts or holds trunk or limbs and provides more than half the effort. 8-Ukwwohywb-jbnaed does ALL the effort. Patient does none of the effort to complete the activity. Or, the assistance of 2 or more helpers is required for the patient to complete the activity. If activity was not attempted, code reason: 7-Patient Refused. 9-Not Applicable-not attempted and the patient did not perform the activity before the current illness, exacerbation or injury. 10-Not Attempted due to Environmental Limitations-(lack of equipment, weather restraints, etc.). 88-Not Attempted due to Medical Conditions or Safety Concerns. Bed Mobility: 6 Transfers (B,C,W/C): 6 Gait: 6 Stairs: 6 Indoor Mobility (Ambulation): Independent Stairs: Independent Prior Devices Use: None PT Evaluation-Current Subjective Patient agrees to PT. Pain Numeric Pain Scale: 5-Moderate Pain Location: Lower Location Body Site: Abdomen Pain Description: Acute Objective Patient Orientation: Normal For Age Attachments: Drains, IV ROM/Strength ROM Lower Extremities bilateral LE WFL Strength Lower Extremities 4-/5 grossly bilateral LE all planes Integumentary/Posture Integumentary refer to nursing notes Bowel Incontinence: No Bladder Incontinence: No Posture slight trunk flexed posture due to abdominal discomfort Neuromuscular (Tone, Coordination, Reflexes) grossly intact Sensory Vision: Functional Hearing: Functional Transfers Roll Left to Right (QC): 6 Sit to Lying (QC): 6 Lying to Sitting/Side of Bed(Q: 6 Sit to Stand (QC): 4 Chair/Gxj-wg-Xflub Xfer(QC): 4 Toilet Transfer (QC): 4 Gait Mode of Locomotion: Walk Anticipated Mode of Locomotion: Walk Walk 10 feet (QC): 4 Walk 50 ft with 2 Turns(QC): 4 Walk 150 ft (QC): 4 Distance: 250' Gait Assistive Device: FWW Comments/Gait Description slow functional gait sequence Balance Sitting Static: Normal Sitting Dynamic: Normal Standing Static: Normal Standing Dynamic: Normal Assessment/Needs Patient will be seen x 2 sessions by skilled PT to ensure safe and functional mobility to return to home. Patient would benefit from use of FWW for safety and energy conservation due to abdominal discomfort. Rehab Potential: Fair PT Short Term Goals Short Term Goals Time Frame: Dec 07, 2021 Roll Left & Right: 6 Sit to lyin Lying to sitting on side of be: 6 Sit to stand: 6 Chair/ena-sq-rfumv transfer: 6 Toilet transfer: 6 Walk 10 feet: 6 Walk 50 feet with two turns: 6 Walk 150 feet: 6 PT Plan Problem List Problem List: Activity Tolerance, Functional Strength, Safety, Balance, Gait, Transfer, Bed Mobility Treatment/Plan Treatment Plan: Continue Plan of Care Treatment Plan: Bed Mobility, Education, Functional Activity Helen, Functional Strength, Gait, Safety, Therapeutic Exercise, Transfers Treatment Duration: Dec 10, 2021 Frequency: 4 times per week Estimated Hrs Per Day: .25 hour per day Patient and/or Family Agrees t: Yes Discharge Recommendations Therapy Discharge Recommendati: Home & Family Time/GCodes Time In: 1250 Time Out: 1300 Total Billed Treatment Time: 10 Total Billed Treatment 1 visit EVModC 10 min NAS PAT PT Dec 07, 2021 13:14
--- NOTE | 2021-12-07 13:25 | Occupational Therapy Eval ---
OT Evaluation-General/PLF Medical Diagnosis Admission Date Dec 05, 2021 at 16:08 Medical Diagnosis: acute appendicitis Onset Date: Dec 05, 2021 Therapy Diagnosis Therapy Diagnosis: n/a Precautions Precautions/Isolations: Fall Prevention, Standard Precautions Referral Physician: Daphne Referral Reason: Evaluation/Treatment Medical History Pertinent Medical History: HTN Additional Medical History R knee replacement Current History ED due to abdominal pain Social History Home: Single Level Current Living Status: Alone Entry Into Home: Ramp ADL-Prior Level of Function SCALE: Activities may be completed with or without assistive devices. 3-Waalvaaggg-auxgvmx completes the activity by him/herself with no assistance from a helper. 5-Set-up or Clean-up Assistance-helper sets up or cleans up; patient completes activity. [place] assists only prior to or following the activity. 4-Supervision or Touching Assistance-helper provides verbal cues and/or touching/steadying and/or contact guard assistance as patient completes activity. Assistance may be provided throughout the activity or intermittently. 3-Partial/Moderate Assistance-helper does LESS THAN HALF the effort. [place] lifts, holds or supports trunk or limbs, but provides less than half the effort. 2-Substantial/Maximal Assistance-helper does MORE THAN HALF the effort. [place] lifts or holds trunk or limbs and provides more than half the effort. 3-Wvxzvxsqq-ryycth does ALL the effort. Patient does none of the effort to complete the activity. Or, the assistance of 2 or more helpers is required for the patient to complete the activity. If activity was not attempted, code reason: 7-Patient Refused. 9-Not Applicable-not attempted and the patient did not perform the activity before the current illness, exacerbation or injury. 10-Not Attempted due to Environmental Limitations-(lack of equipment, weather restraints, etc.). 88-Not Attempted due to Medical Conditions or Safety Concerns. ADL PLOF Comments Pt reports IND with ADLs and functional mobility at PLOF, no AD. She has a walk in shower, no SC. Standard toilet. Self Care: Independent Functional Cognition: Independent OT Current Status Subjective Pt in recliner, agreeable to OT Tx. Pt appears anxious, feels like she isn't ready to discharge tomorrow. Mental Status/Objective Patient Orientation: Person, Place, Time, Situation Attachments: IV Current Upper Extremity ROM WFL Upper Extremity Strength WFL ADL-Treatment Eating (QC): 6 (IND) Oral Hygiene (QC): 6 (Per clincial judgment.) On/Off Footwear (QC): 6 (IND) Toileting Hygiene (QC): 6 (IND per pt and nursing report.) Other Treatments Pt in recliner, agreeable to OT Tx. Pt just finished ambulating in halls with PT. Pt demo'd ability to eat and complete footwear independently. Pt declined toileting, as she just went prior to PT, per pt and nursing report, pt independent with toileting. Pt states she doesn't feel like she is ready to go home, when asked to elaborate, she says she has a large dog and won't be able to take the dog out fast enough. Pt doesn't have a SC and her shower isn't large enough for one. OT informed pt she could take sponge baths until she feels comfortable enough to get into the shower. Pt also feels like she needs a toilet riser at discharge, OT educated pt on BSC vs toilet riser, and pt states she would like a BSC. Post tx, pt in recliner, call light in reach and all needs met. Education OT Patient Education: Correct positioning, Modified ADL techniques, Progress toward Goal/Update tx plan, Purpose of tx/functional activities, Rehab process Teaching Recipient: Patient Teaching Methods: Discussion Response to Teaching: Verbalize Understanding OT Senior Care Goals Dials Supervisor Goals 1=Demonstrate adherence to instructed precautions during ADL tasks. 2=Patient will verbalize/demonstrate understanding of assistive devices/modifications for ADL. 3=Patient will improve strength/tolerance for activity to enable patient to perform ADL's. OT Education/Plan Problem List/Assessment Assessment: No Skilled OT Needs ID'd No skilled OT services indicated at this time, pt is independent with ADLs and at [facility]. D/C from OT. Discharge Recommendations Plan/Recommendations: Discharge/Goals Met Treatment Plan/Plan of Care Patient would benefit from OT for education, treatment and training to promote independence in ADL's, mobility, safety and/or upper extremity function for ADL's. Plan of Care: ADL Retraining, Functional Mobility, UE Funct Exercise/Act Treatment Duration: Dec 07, 2021 Frequency: 1 time per week (eval only) Estimated Hrs Per Day: .25 hour per day Agreement: Yes Rehab Potential: Fair Time/GCodes Start Time: 13:00 Stop Time: 13:10 Total Time Billed (hr/min): 10 Billed Treatment Time 1DEB ADDISON OT Dec 07, 2021 13:25
[2021-12-07] MEDS: AUGMENTIN 500 MG TAB (AMOXICILLIN/CLAVULANATE) PO SCH (17:34)
[2021-12-08 03:41] VITALS: BP 157/73
[2021-12-08] MEDS: HYDROcodone/APAP 5 MG/325 MG (LORTAB) TAB PO PRN (03:45)
--- NOTE | 2021-12-08 07:07 | Progress Note - Surgery ---
DUNCAN LU 12/08/21 0707: Subjective Date Seen by a Provider: Dec 08, 2021 Time Seen by a Provider: 06:15 Subjective/Events-last exam POD3 from appendectomy. Pt is lying in bed comfortably. Pt reports her abdominal pain is 7/10 in the RLQ today, but she feels better than yesterday. She has not reported BM or flatus since surgery. Pt is more able to walk today, says walking "gets easier every time she does it". Pt reports using incentive spirometer 5 times yesterday. Incisions are clean, dry, and intact. Pt is able to urinate without problem. Her drain contains yellow fluid, appears less cloudy and bloody than yesterday. Pt reports it is draining less than yesterday. She has no other complains and feels like she is ready to go home today. Review of Systems General: No Chills, No Night Sweats HEENT: Head Aches (headache last night, better this morning); No Visual Changes Pulmonary: No Dyspnea, No Cough Cardiovascular: No: Chest Pain, Palpitations Gastrointestinal: Abdominal Pain (RLQ tenderness); No: Nausea, Vomiting Genitourinary: No Dysuria, No Hematuria Neurological: No: Change in speech, Confusion Objective Exam Vital Signs Date Time Temp Pulse Resp B/P (MAP) Pulse Ox O2 Delivery O2 Flow Rate FiO2 12/08/21 03:41 37.6 82 18 157/73 (101) 96 Room Air 12/07/21 23:22 36.6 84 18 138/63 (88) 93 Room Air 12/07/21 20:50 Nasal Cannula 2.00 12/07/21 20:00 Nasal Cannula 2.00 12/07/21 19:13 36.5 82 17 130/74 (92) 94 Room Air 12/07/21 15:30 37.4 84 18 122/58 (79) 94 Room Air 12/07/21 11:31 36.5 80 18 110/56 (74) 95 Room Air 12/07/21 09:19 Room Air 0.00 12/07/21 07:59 Room Air 12/07/21 07:54 37.0 80 18 121/59 (79) 95 Room Air I & O 12/08/21 07:00 Intake Total 1180 ml Output Total 1225 ml Balance -45 ml Capillary Refill : Less Than 3 Seconds General Appearance: No Apparent Distress, WD/WN, Obese HEENT: PERRL/EOMI, Moist Mucous Membranes; No Scleral Icterus (L), No Scleral Icterus (R) Neck: Non Tender, Supple Respiratory: Chest Non Tender, Lungs Clear, Normal Breath Sounds, No Accessory Muscle Use Cardiovascular: Regular Rate, Rhythm, No Murmur Peripheral Pulses: 2+ Radial Pulses (R), 2+ Radial Pulses (L) Gastrointestinal: soft, tenderness (RLQ), other (incisions c/d/i and RONAL with serosanguinous fluid) Extremity: Non Tender, No Calf Tenderness, No Pedal Edema Neurologic/Psychiatric: Alert, Oriented x3, Normal Mood/Affect; No Facial Droop Skin: Normal Color, Warm/Dry, Other (incisions are clean, dry, and intact) Lymphatic: No Adenopathy (cervical) Results Lab Microbiology 12/05/21 MRSA Screen - Final, Complete MRSA not isolated Assessment/Plan Assessment/Plan Assessment/Plan S/P appendectomy POD3 Leukocytosis- 11.1, was 11.4 yesterday and 14 the 2 days ago Tolerating diet, switch to oral pain meds. Pt encouraged to ambulate and use IS. Pt was able to walk with therapy yesterday and claims no problems walking on her own. No BM or flatus since surgery, Pt has voided. Pt is able to be discharged to today with oral abx and pain meds. PRATEEK SERNA DO 12/08/21 1314: Subjective Time Seen by a Provider: 11:58 Subjective/Events-last exam Pt seen and examined, states she is finally feeling better. Did have some pain this am, but better now and she would like to go home. Review of Systems General: No Chills, No Night Sweats HEENT: Head Aches (headache last night, better this morning); No Visual Changes Pulmonary: No Dyspnea, No Cough Cardiovascular: No: Chest Pain, Palpitations Gastrointestinal: Abdominal Pain (RLQ tenderness); No: Nausea, Vomiting Objective Exam General Appearance: Mild Distress, Obese HEENT: PERRL/EOMI, Moist Mucous Membranes Respiratory: Lungs Clear, Normal Breath Sounds, No Accessory Muscle Use, No Respiratory Distress Cardiovascular: Regular Rate, Rhythm, No Murmur Gastrointestinal: soft, tenderness (RLQ), other (incisions c/d/i and RONAL with serosanguinous fluid) Neurologic/Psychiatric: Alert, Oriented x3 Skin: Other (incisions are clean, dry, and intact) Assessment/Plan Assessment/Plan Assessment/Plan S/P appendectomy POD3 Leukocytosis- 11.1, was 11.4 yesterday and 14 the 2 days ago Tolerating diet, switch to oral pain meds. Pt encouraged to ambulate and use IS. Pt was able to walk with therapy yesterday and claims no problems walking on her own. No BM or flatus since surgery, Pt has voided. Pt to be discharged to today with oral abx and pain meds. Supervisory-Addendum Brief Verification & Attestation Participated in pt care: history, MDM, physical Personally performed: exam, history, MDM, supervision of care Care discussed with: Medical Student Procedures: n/a Verification and Attestation of Medical Student E/M Service A medical student performed and documented this service. I then reviewed and verified all information documented by the medical student and made modifications to such information, when appropriate. I personally performed a physical exam, medical decision making and then discussed any differences between the notes and made revisions as necessary to create one note. Prateek Serna , 12/08/21 , 13:13 DUNCAN LU Dec 08, 2021 07:07 PRATEEK SERNA DO Dec 08, 2021 13:14
[2021-12-08 08:14] VITALS: BP 146/70
[2021-12-08] MEDS: AUGMENTIN 500 MG TAB (AMOXICILLIN/CLAVULANATE) PO SCH ×2 (08:26→13:29)
[2021-12-08] MEDS: morphine INJ 4 MG/ML 1 ML (VIAL/SYRINGE) IV PRN (08:29)
[2021-12-08] MEDS ORDERED: KETOROLAC 30 MG/ML VIAL IM NR (09:00)
--- NOTE | 2021-12-08 09:47 | Physical Therapy Daily Note ---
PT Daily Note-Current Subjective Patient in bed pre tx, agrees to PT, has unrated abdominal pain. Pain Section J - Health Conditions 1. Rarely or not at all 2. Occasionally 3. Frequently 4. Almost constantly 8. Unable to answer Pain Effect on Sleep: 2 Pain Interference with Therapy: 2 Pain Interference w/Day-to-Day: 2 Appearance Patient in restroom post tx, independent with ambulation, can make it back to her bed on her own. Mental Status Patient Orientation: Person, Place, Situation Transfers SCALE: Activities may be completed with or without assistive devices. 2-Mztywpypln-znpxsam completes the activity by him/herself with no assistance from a helper. 5-Set-up or Clean-up Assistance-helper sets up or cleans up; patient completes activity. [place] assists only prior to or following the activity. 4-Supervision or Touching Assistance-helper provides verbal cues and/or touching/steadying and/or contact guard assistance as patient completes activity. Assistance may be provided throughout the activity or intermittently. 3-Partial/Moderate Assistance-helper does LESS THAN HALF the effort. [place] lifts, holds or supports trunk or limbs, but provides less than half the effort. 2-Substantial/Maximal Assistance-helper does MORE THAN HALF the effort. [place] lifts or holds trunk or limbs and provides more than half the effort. 7-Pxhpdiifh-ndweic does ALL the effort. Patient does none of the effort to complete the activity. Or, the assistance of 2 or more helpers is required for the patient to complete the activity. If activity was not attempted, code reason: 7-Patient Refused. 9-Not Applicable-not attempted and the patient did not perform the activity before the current illness, exacerbation or injury. 10-Not Attempted due to Environmental Limitations-(lack of equipment, weather restraints, etc.). 88-Not Attempted due to Medical Conditions or Safety Concerns. Roll Left & Right (QC): 6 Lying to Sitting/Side of Bed(Q: 6 Sit to Stand (QC): 6 Chair/Hhn-id-Mxlva Xfer(QC): 6 Weight Bearing Right Lower Extremity: Right Weight Bearing/Tolerated Left Lower Extremity: Left Weight Bearing/Tolerated Gait Training Distance: 600' Walk 10 feet (QC): 6 Walk 50 ft with 2 Turns(QC): 6 Walk 150 ft (QC): 6 Gait Assistive Device: FWW brisk ambulation, independent Treatments bed mobility and transfers, ambulation. Assessment Current Status: Good Progress Patient is independent with mobility at this time, will DC from PT services. PT Short Term Goals Short Term Goals Time Frame: Dec 07, 2021 Roll Left & Right: 6 Sit to lyin Lying to sitting on side of be: 6 Sit to stand: 6 Chair/zef-od-dfktj transfer: 6 Toilet transfer: 6 Walk 10 feet: 6 Walk 50 feet with two turns: 6 Walk 150 feet: 6 PT Plan Treatment/Plan Treatment Plan: Discontinue PT Treatment Plan: Bed Mobility, Education, Functional Activity Helen, Functional Strength, Gait, Safety, Therapeutic Exercise, Transfers Treatment Duration: Dec 10, 2021 Frequency: 4 times per week Estimated Hrs Per Day: .25 hour per day Patient and/or Family Agrees t: Yes Safety Risks/Education Patient Education: Gait Training, Transfer Techniques, Correct Positioning, Safety Issues Teaching Recipient: Patient Teaching Methods: Demonstration, Discussion Response to Teaching: Verbalize Understanding, Return Demonstration Time/GCodes Time In: 917 Time Out: 928 Total Billed Treatment Time: 11 Total Billed Treatment 1 visit GT 11' RAUL MATOS PT Dec 08, 2021 09:47
[2021-12-08 12:08] VITALS: BP 133/62
[2021-12-08] MEDS ORDERED: ACHD5005 PO (13:08)
--- NOTE | 2021-12-08 13:11 | Discharge Inst-Surgical ---
Discharge Inst-Surgical Depart Medication/Instructions New, Converted or Re-Newed RX: Transmitted to Pharmacy Patient Instructions Follow up Appt: Make appointment for 1 week. [phone] Instructions: No lifting greater than 20 pounds. No strenuous activity. May shower in 24 hours, no tub bath or soaking. Use incentive spirometer at home as directed. No Smoking Skin/Wound Care: May remove bandages in am. You need to leave the Dermabond on incision it will fall off on it's own. Symptoms to Report: Appetite Changes, Extremity Discoloration, Numbness/Tingling, Swelling Increased, Bleeding Excessive, Eyesight Changes, Pain Increased, Urine Color Change, Constipation(Persistent), Fever over 101 degree F, Pain/Pressure in chest, Urinating Difficulty, Cough Up/Vomit Blood, Heart Beat Irreg/Pounding, Pain/Pressure in jaw, Cramps in feet or legs, Lightheadedness, Pain/Pressure in shoulder, Diarrhea(Persistent), Memory Changes Suddenly, Questions/Concerns, Weight gain consecutive days, Dizziness/Fainting, Nausea/Vomiting, Shortness of Breath, Weight gain over 2 pounds If questions or concerns contact your physician Or seek help at emergency department. Activity Activity as Tolerated: Yes Activity Instructions: Avoid Stress to Incision Driving Instructions: No Driving/Refer to Dr. Rae Discharge Diet: No Restrictions Diet After 24 Hours: Clear Liquid if Nauseous If Any Problems/Questions/Issu: Contact Your Physician, Go to Emergency Room Skin/Wound Care Infection Signs and Symptoms: Increased Redness, Foul Odor of Wound, Increased Drainage, Skin Itchy or Has a Rash, Increased Swelling, Temperature Above 101 F Wound Care Comment: RONAL drain teaching Bathing Instructions: Shower Stitches/Kittery/Dermabond Dis: Dermabond HOMA SHEA DO Dec 08, 2021 13:10
[2021-12-08] MEDS ORDERED: AMOX1TAB39 PO (13:14)
[2021-12-08 14:09] VITALS: BP 133/62
== END 2021-12-08 14:30 | disposition home or self-care (01) | DRG 343 ==
LOC: EDUNIT# 13:04 → ER FS 13:05 → 4TH 14:00 → OBSVTOIN 16:08 → 4TH 12-07 13:18
PROVIDERS: ADMIT Surgery; ATTEND Surgery
PROC: 0DTJ4ZZ Resection of Appendix, Percutaneous Endoscopic Approach (ICD-10-PCS; principal; 2021-12-05 19:42)
DX: K35.80 Unspecified acute appendicitis (principal); K38.1 Appendicular concretions; K57.90 Diverticulosis of intestine, part unspecified, without perforation or abscess without bleeding; F17.210 Nicotine dependence, cigarettes, uncomplicated; E78.00 Pure hypercholesterolemia, unspecified; M10.9 Gout, unspecified; E03.9 Hypothyroidism, unspecified
CPT/HCPCS: 36415; 74177; 80048; 80053; 85007; 85025; 85027; 87081; 94664; 94760; 96374; 96375; Q9967

== ENCOUNTER 2022-10-02 17:15 | Emergency (ER) | payer MEDICARE, BC ==
[~2022-10-02 17:15] MED LIST: ACHD5005 PO; ALLO100T PO; AMOX1TAB39 PO; ATOR40TA70 PO; CELE-63 PO; LEVO150T6 PO; MV-M1TAB57 PO; VIT1CAPS5 PO
[2022-10-02 17:44] VITALS: BP 103/92
--- NOTE | 2022-10-02 17:49 | ED General ---
General Chief Complaint: General Problems/Pain Stated Complaint: HIGH BP Nursing Triage Note: PT REPORTS HER BLOOD PRESSURE AT HOME WAS 183 SYSTOLIC. THROUGHOUT THE DAY IT WAS 165/85 AND 162/78. PT BECAME ANXIOUS AFTER THOSE READINGS. SHE HAS NO OTHER COMPLAINTS OR SYMPTOMS. Source of Information: Patient History of Present Illness Date Seen by Provider: Oct 02, 2022 Time Seen by Provider: 17:19 Initial Comments 77-year-old female presenting with complaints of high blood pressure. She states that she has been taking lisinopril for blood pressure for a while now but her doctor recently asked her to keep track of her blood pressures. She checked her pressure earlier today and it was 162/78. She did not rechecked it and it was 183 over something and the machine told her that she was having organ damage and to consult a physician immediately. She became more worried and came to the emergency department for evaluation. She denies having a headache, blurred vision, change in vision, chest pain, nausea, shortness of breath. Timing/Duration: 4-6 Hours Severity: Mild Associated Systoms: No Chest Pain, No Cough, No Diaphoresis, No Fever/Chills, No Headaches, No Loss of Appetite, No Malaise, No Nausea/Vomiting, No Rash, No Seizure, No Shortness of Air, No Syncope, No Weakness Allergies and Home Medications Allergies Coded Allergies: No Known Drug Allergies (Unverified , 02/06/19) Patient Home Medication List Home Medication List Reviewed: Yes Allopurinol (Allopurinol) 100 Mg Tablet, 100 MG PO DAILY, (Reported) Entered as Reported by: JASVIR SEE on 12/05/211808 Amoxicillin/Potassium Clav (Amoxicillin-Clav ER 1,000-62.5) 1,000 Mg-62.5 Mg Tab.er.12h, 1 EACH PO BID Prescribed by: HOMA SHEA on 12/08/21 1314 Atorvastatin Calcium (Atorvastatin Calcium) 40 Mg Tablet, 40 MG PO DAILY, (Reported) Entered as Reported by: JASVIR SEE on 12/05/211808 Celecoxib (Celecoxib) 200 Mg Capsule, 200 MG PO DAILY, (Reported) Entered as Reported by: JASVIR SEE on 12/05/211808 Hydrocodone Bit/Acetaminophen (HYDROcodone/APAP 5 MG/325 MG TAB) 1 Tab Tab, 1 EA PO Q6HR PRN for PAIN-MODERATE (5-7) Prescribed by: HOMA SHEA on 12/08/21 1309 Levothyroxine Sodium (Levothyroxine Sodium) 150 Mcg Tablet, 150 MCG PO DAILY, (Reported) Entered as Reported by: JASVIR SEE on 12/05/21 1809 Mv-Mn/Folic Acid/Calcium/Vit K (Women's 50 Plus Multivit Tab) 400 Mcg-500 Mg Calcium-20 Mcg Tablet, 1 EACH PO DAILY, (Reported) Entered as Reported by: SO DUMONT on 12/06/21 0820 Vit A/C/E/Zinc/Co (Preservision Areds Softgel) 14,320-226 Capsule, 1 CAP PO DAILY, (Reported) Entered as Reported by: SO DUMONT on 12/06/21 0819 Review of Systems Review of Systems Constitutional: No chills, No dizziness, No fever EENTM: No ear pain, No eye pain, No epistaxis Respiratory: No cough, No short of breath Cardiovascular: No chest pain, No palpitations Gastrointestinal: No abdominal pain, No nausea, No vomiting Genitourinary: No dysuria Musculoskeletal: no symptoms reported Skin: No rash Psychiatric/Neurological: Denies Headache, Denies Numbness, Denies Paresthesia Past [id number] Hx Patient Social History Tobacco Use?: No Use of E-Cig and/or Vaping dev: No Substance use?: No Alcohol Use?: No Pt feels they are or have been: No Immunizations Up To Date Tetanus Booster (TDap): Unknown Past Medical History Surgery/Hospitalization HX: diverticulosis, HTN, high cholesterol, gout, hypothyroidism RIGHT KNEE REPLACEMENT LEFT FOOT HAS METAL IN IT FROM EXTENSIVE SURGERIES ; Surgeries: Yes (colonoscopies) Respiratory: No Currently Using CPAP: No Currently Using BIPAP: No Cardiac: Yes High Cholesterol Neurological: No Genitourinary: No Gastrointestinal: Yes Diverticulosis Musculoskeletal: Yes Arthritis, Gout Endocrine: Yes Hypothyroidsim HEENT: No Loss of Vision: Denies Hearing Impairment: Denies Cancer: No Psychosocial: No Family Medical History Cancer Physical Exam Vital Signs Vital Signs - First Documented 10/02/22 17:19 Temp 35.7 Pulse 75 Resp 16 B/P (MAP) 183/79 (113) Pulse Ox 100 O2 Delivery Room Air Capillary Refill : Less Than 3 Seconds Height, Weight, BMI Height: '" Weight: lbs. oz. 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 As I was sitting talking with her reviewing that her exam was benign and she does not have any symptoms that were concerning with high blood pressure she became more relaxed and the next blood pressure check was 103/92. She was counseled on return precautions and advised to keep taking her medication. Try to keep a log of her blood pressures. Given information about DASH diet as well as heart healthy activities. Handout about blood pressure medicines and blood pressure emergencies. Encouraged to keep the log of her blood pressure readings and check back with Dr. Pepper for continued concerns. They may have to adjust her medicine or add an additional medicine if she continues to run high on her blood pressure. Departure Impression Primary Impression: Hypertension Qualified Codes: I10 - Essential (primary) hypertension Additional Impression: Elevated blood pressure reading in office with diagnosis of hypertension Disposition: HOME, SELF-CARE Condition: Stable Departure-Patient Inst. Decision time for Depature: 17:46 Referrals: POLO PEPPER MD (PCP) Primary Care Physician Patient Instructions: Lowering Your Risk of Heart Disease, High Blood Pressure ED, High blood pressure emergencies, DASH Diet, Controlling your blood pressure through lifestyle Add. Discharge Instructions: Try to stay well hydrated and drink more water. Limit your caffeine intake and sodium intake as those can contribute to higher blood pressures. Keep track of your blood pressure and check with Dr. Pepper if the pressures are consistently reading high on consecutive days. Try to add in some activity and exercise to help with your heart health and blood pressure. If you have a high blood pressure and you are having symptoms of high blood pressure such as headache, blurred vision, chest pain, shortness of breath, then it is more worrisome that the blood pressure is abnormally high and can be causing your body harm. If those instances happen then get rechecked in the clinic or ER. All discharge instructions reviewed with patient and/or family. Voiced understanding. GWENDOLYN ALEMAN MD Oct 02, 2022 17:49
== END 2022-10-02 17:50 | disposition home or self-care (01) ==
LOC: EDUNIT# 17:15 → ER FS 17:16
DX: I10 Essential (primary) hypertension (principal); Z79.899 Other long term (current) drug therapy
CPT/HCPCS: 99281